=== PATIENT | female | born 1965 | race Two or more races ===

== ENCOUNTER 2018-08-01 14:25 | Emergency (ER) | payer OTHER ==
[~2018-08-01] VITALS: Ht 165.1 cm; Wt 51.3 kg
[2018-08-01] MEDS ORDERED: PROZAC10 MG (15:12)
== END 2018-08-01 20:09 | disposition home or self-care (01) ==
LOC: ER 14:25
DX: B34.9 Viral infection, unspecified (principal)

== ENCOUNTER 2019-03-31 10:56 | Outpatient (CLI) | payer OTHER ==
[~2019-03-31 10:56] MED LIST: PROZAC10 MG
== END 2019-03-31 11:00 | disposition home or self-care (01) ==
LOC: NUCLEAR 10:56
DX: M81.0 Age-related osteoporosis without current pathological fracture (principal)

== ENCOUNTER 2021-03-07 07:26 | Outpatient (CLI) | payer OTHER | END 2021-03-07 07:31 | disposition home or self-care (01) | LOC: SONOGRAMA 07:26 | PROVIDERS: ATTEND Internal Medicine Hematology & Oncology | DX: E04.2 Nontoxic multinodular goiter (principal); R59.0 Localized enlarged lymph nodes; D53.0 Protein deficiency anemia; D51.3 Other dietary vitamin B12 deficiency anemia; K90.0 Celiac disease; F33.8 Other recurrent depressive disorders ==

== ENCOUNTER → 2021-03-08 08:15 | Outpatient (CLI) | payer OTHER | END | disposition home or self-care (01) | LOC: LAB 08:15 | PROVIDERS: ATTEND Internal Medicine Hematology & Oncology | DX: D50.8 Other iron deficiency anemias (principal); R79.89 Other specified abnormal findings of blood chemistry; I10 Essential (primary) hypertension; R74.02 Elevation of levels of lactic acid dehydrogenase [LDH]; K76.89 Other specified diseases of liver; D51.1 Vitamin B12 deficiency anemia due to selective vitamin B12 malabsorption with proteinuria; K90.0 Celiac disease; E03.8 Other specified hypothyroidism; E06.3 Autoimmune thyroiditis; R97.0 Elevated carcinoembryonic antigen [CEA]; R97.8 Other abnormal tumor markers; B27.80 Other infectious mononucleosis without complication; R59.0 Localized enlarged lymph nodes; D53.0 Protein deficiency anemia; D51.3 Other dietary vitamin B12 deficiency anemia; F33.8 Other recurrent depressive disorders ==

== ENCOUNTER 2021-03-15 10:02 | Emergency (ER) | payer OTHER ==
[~2021-03-15] VITALS: Ht 165.1 cm; Wt 61.2 kg
== END 2021-03-15 18:16 | disposition home or self-care (01) ==
LOC: ER 10:02
DX: R60.0 Localized edema (principal)

== ENCOUNTER 2021-05-27 09:36 | Outpatient (CLI) | payer OTHER | END 2021-05-27 09:44 | disposition home or self-care (01) | LOC: LAB 09:36 | PROVIDERS: ATTEND Internal Medicine Hematology & Oncology | DX: D50.8 Other iron deficiency anemias (principal); R79.89 Other specified abnormal findings of blood chemistry; I10 Essential (primary) hypertension; R74.02 Elevation of levels of lactic acid dehydrogenase [LDH]; K76.89 Other specified diseases of liver; R97.0 Elevated carcinoembryonic antigen [CEA]; R97.8 Other abnormal tumor markers; D51.8 Other vitamin B12 deficiency anemias; D53.0 Protein deficiency anemia; D51.3 Other dietary vitamin B12 deficiency anemia; K90.0 Celiac disease; F33.8 Other recurrent depressive disorders; R59.0 Localized enlarged lymph nodes ==

== ENCOUNTER 2022-03-24 07:03 | Outpatient (CLI) | payer OTHER | END 2022-03-24 07:04 | disposition home or self-care (01) | LOC: LAB 07:03 | PROVIDERS: ATTEND Internal Medicine Hematology & Oncology | DX: D50.8 Other iron deficiency anemias (principal); R79.9 Abnormal finding of blood chemistry, unspecified; I10 Essential (primary) hypertension; R74.02 Elevation of levels of lactic acid dehydrogenase [LDH]; K76.89 Other specified diseases of liver; I78.8 Other diseases of capillaries; D53.0 Protein deficiency anemia; D51.3 Other dietary vitamin B12 deficiency anemia; K90.0 Celiac disease; F33.9 Major depressive disorder, recurrent, unspecified; R59.0 Localized enlarged lymph nodes ==

== ENCOUNTER 2022-06-12 13:34 | Outpatient (CLI) | payer OTHER | END 2022-06-12 13:36 | disposition home or self-care (01) | LOC: LAB 13:34 | PROVIDERS: ATTEND General Practice | DX: B09 Unspecified viral infection characterized by skin and mucous membrane lesions (principal) ==

== ENCOUNTER 2022-06-12 14:19 | Outpatient (CLI) | payer OTHER | END 2022-06-12 14:27 | disposition home or self-care (01) | LOC: MAMO-SONO 14:19 | PROVIDERS: ATTEND Internal Medicine Hematology & Oncology | DX: N63 Unspecified lump in breast (principal); N64.4 Mastodynia; Z12.31 Encounter for screening mammogram for malignant neoplasm of breast; I78.8 Other diseases of capillaries; D53.0 Protein deficiency anemia; D51.3 Other dietary vitamin B12 deficiency anemia; K90.0 Celiac disease; F33.9 Major depressive disorder, recurrent, unspecified; R59.0 Localized enlarged lymph nodes ==

== ENCOUNTER 2022-11-12 07:27 | Outpatient (CLI) | payer OTHER | END 2022-11-12 07:37 | disposition home or self-care (01) | LOC: LAB 07:27 | PROVIDERS: ATTEND Internal Medicine Hematology & Oncology | DX: E78.2 Mixed hyperlipidemia (principal); E34.9 Endocrine disorder, unspecified; E03.1 Congenital hypothyroidism without goiter; I10 Essential (primary) hypertension; D50.8 Other iron deficiency anemias; R79.9 Abnormal finding of blood chemistry, unspecified; R74.02 Elevation of levels of lactic acid dehydrogenase [LDH]; K76.89 Other specified diseases of liver; D51.8 Other vitamin B12 deficiency anemias; E55.9 Vitamin D deficiency, unspecified; I78.8 Other diseases of capillaries; D53.0 Protein deficiency anemia; D51.3 Other dietary vitamin B12 deficiency anemia; K90.0 Celiac disease; F33.9 Major depressive disorder, recurrent, unspecified; R59.0 Localized enlarged lymph nodes ==

== ENCOUNTER 2023-02-13 08:57 | Outpatient (CLI) | payer OTHER | END 2023-02-13 09:08 | disposition home or self-care (01) | LOC: LAB 08:57 | PROVIDERS: ATTEND Internal Medicine Hematology & Oncology | DX: D50.8 Other iron deficiency anemias (principal); R79.9 Abnormal finding of blood chemistry, unspecified; I10 Essential (primary) hypertension; R74.02 Elevation of levels of lactic acid dehydrogenase [LDH]; K76.89 Other specified diseases of liver; D51.8 Other vitamin B12 deficiency anemias; I78.8 Other diseases of capillaries; D53.0 Protein deficiency anemia; D51.3 Other dietary vitamin B12 deficiency anemia; K90.0 Celiac disease; F33.9 Major depressive disorder, recurrent, unspecified; R59.0 Localized enlarged lymph nodes ==